=== PATIENT | female | born 1940 | race Caucasian/White ===

== ENCOUNTER 2023-10-18 08:23 | Emergency (ER) | payer MEDICARE, BC ==
[~2023-10-18] VITALS: Ht 172.7 cm; Wt 68.8 kg
[~2023-10-18 08:23] MED LIST: ALBU6.7H14 INH
[2023-10-18 08:25] VITALS: BP 175/60; PULSE 80; RESP 16; TEMP 98; O2SAT 95
== END 2023-10-18 11:28 | disposition home or self-care (01) ==
LOC: ER 08:24
DX: M25.531 Pain in right wrist (principal); F12.90 Cannabis use, unspecified, uncomplicated; Z88.1 Allergy status to other antibiotic agents; Z88.6 Allergy status to analgesic agent; Z91.041 Radiographic dye allergy status; Z79.899 Other long term (current) drug therapy; W19.XXXA Unspecified fall, initial encounter; Y93.89 Activity, other specified; Y92.098 Other place in other non-institutional residence as the place of occurrence of the external cause; Y99.8 Other external cause status
CPT/HCPCS: 29125; 73110; 99284